=== PATIENT | male | born 1990 | race African-American/Black ===

== ENCOUNTER 2025-01-02 12:39 | Inpatient (IN) | payer OTHER ==
[2025-01-02 12:56] VITALS: BMI 19.9
[2025-01-02] MEDS ORDERED: ONDANSETRON *ODT* 4 MG TABLET SL PRN (13:11)
[2025-01-02] MEDS ORDERED: IBUPROFEN 400 MG TABLET (FP) PO PRN (13:11)
[2025-01-02] MEDS ORDERED: ACETAMINOPHEN 325 MG TABLET (FP) PO PRN (13:11)
[2025-01-02] MEDS ORDERED: MAGNESIUM HYDROX 2400MG/30ML ORAL SUSPENSION 30 ML CUP PO PRN (13:11)
[2025-01-02] MEDS ORDERED: POLYETHYLENE GLYCOL (HEALTHYLAX) 3350 17 GM PACKET PO PRN (13:11)
[2025-01-02] MEDS ORDERED: LOPERAMIDE HCL 2 MG CAPSULE PO PRN (13:11)
[2025-01-02] MEDS ORDERED: BISMUTH SUBSALICYLATE 524 MG/30 ML PO PRN (13:11)
[2025-01-02] MEDS ORDERED: P-EPHED 60MG/TRIPROLIDI 2.5MG TABLET PO PRN (13:11)
[2025-01-02] MEDS ORDERED: DICYCLOMINE HCL 10 MG CAPSULE PO PRN (13:11)
[2025-01-02] MEDS ORDERED: BENZOCAINE/MENTHOL (CHLORASEPTIC ) LOZENGE MM PRN (13:11)
[2025-01-02] MEDS ORDERED: NALOXONE (NARCAN) HCL 4 MG/0.1 ML SPRAY NS PRN (13:11)
[2025-01-02] MEDS ORDERED: BENZONATATE 200 MG CAPSULE PO PRN (13:11)
[2025-01-02] MEDS ORDERED: guaiFENesin 600 MG TABLET.ER (FP) PO PRN (13:11)
[2025-01-02] MEDS ORDERED: MAG HYDROX/AL HYDROX/SIMETH 30 ML UNIT-DOSE CUP PO PRN (13:11)
[2025-01-02] MEDS ORDERED: NICOTINE POLACRILEX 2 MG LOZENGE BC PRN (13:11)
[2025-01-02] MEDS: MELATONIN 5 MG TABLETS PO SCH (21:26)
[2025-01-02] MEDS: THIAMINE 100 MG TABLET PO SCH (21:26)
[2025-01-02] MEDS: METHOCARBAMOL 500 MG TABLET PO PRN (21:26)
[2025-01-03] MEDS: PRENATAL VITAMINS W/ FOLIC ACID TABLET (FP) PO SCH (09:30)
[2025-01-03 13:54] LABS: MCHC 32.2 g/dl (32.3-36.5); MEAN CELL VOLUME 85.2 fl (79.0-92.2); MEAN PLT VOLUME 9.4 fl (9.4-12.4); RDW 14.1 % (12.0-15.6)
[2025-01-03 15:00] LABS: CO2 27.0 mmol/L (21-32); GLUCOSE,RANDOM 130.0 mg/dL (74-106)
[2025-01-03 15:03] LABS: CREATININE 1.0 mg/dL (0.55-1.3); SGOT/AST 15.0 U/L (15-37); SGPT/ALT 20.0 U/L (13-61)
[2025-01-03 15:04] LABS: TOT PROT 7.7 g/dl (6.4-8.2)
[2025-01-03 15:06] LABS: ALK PHOS 109.0 U/L (45-117)
[2025-01-03] MEDS: IBUPROFEN 600 MG TABLET (FP) PO PRN (21:53)
[2025-01-04] MEDS: PENICILLIN G BENZATHINE 2,400,000 UNIT/4 ML PFS IM ONE (14:12)
[2025-01-04 15:06] LABS: IRON SERUM 88 ug/dL (50-175)
[2025-01-05] MEDS: NICOTINE POLACRILEX 2 MG GUM BUC PRN (17:16)
[2025-01-08 09:06] VITALS: BP 114/76; PULSE 72; RESP 17; TEMP 98.1
== END 2025-01-08 09:40 | disposition home or self-care (01) | DRG 773 ==
LOC: YASAS 12:39 → Y6N 14:18
PROVIDERS: ADMIT Neuromusculoskeletal Medicine & OMM; ATTEND Allergy & Immunology
PROC: HZ2ZZZZ Detoxification Services for Substance Abuse Treatment (ICD-10-PCS; principal; 2025-01-02)
DX: F11.23 Opioid dependence with withdrawal (principal); F17.210 Nicotine dependence, cigarettes, uncomplicated
CPT/HCPCS: 36415; 80053; 80305; 80307; 82728; 83540; 83550; 85027; 86593; 86780; 87491; 87591; 87661; 93005; 93010